=== PATIENT | female | born 1965 | race Caucasian/White ===

== ENCOUNTER 2016-05-21 10:33 | Day surgery (SDC) | payer BC ==
[2016-05-20 10:25] LABS: BLOOD UREA NITROGEN 16 mg/dL (7-18)
[~2016-05-21] VITALS: Ht 157.5 cm; Wt 90.0 kg
[~2016-05-21 10:33] MED LIST: ATOR10TA9 PO; CHOL500015 PO; LEVO100T5 PO; MULT-516 PO; VITA1TAB3 PO
[2016-05-21] MEDS ORDERED: LACTATED RINGERS 1,000 ML IV SCH (11:03)
[2016-05-21 11:04] VITALS: BP 134/86
[2016-05-21] MEDS ORDERED: LIDOCAINE 1%, 2ML SQ PRN (11:30)
[2016-05-21] MEDS ORDERED: BUPIVACAINE/PF-EPI 0.25% 1:200K ONE (12:13)
[2016-05-21] MEDS ORDERED: FENTANYL PF 250 MCG/5ML ONE (12:27)
[2016-05-21] MEDS ORDERED: MIDAZOLAM 1 MG/ML, 2ML ONE (12:27)
[2016-05-21] MEDS ORDERED: ONDANSETRON 2MG/ML, 2ML ONE (12:57)
[2016-05-21] MEDS ORDERED: DEXAMETHASONE 4 MG/ML, 1ML ONE (12:57)
[2016-05-21] MEDS ORDERED: PROPOFOL 10 MG/ML, 20ML ONE (12:57)
[2016-05-21] MEDS ORDERED: CEFAZOLIN 1,000 MG ONE (12:57)
[2016-05-21] MEDS ORDERED: BUPIVACAINE/PF-EPI 0.25% 1:200K INFIL ONE (13:19)
[2016-05-21] MEDS ORDERED: OXYcodone 5 MG/5 ML ORAL.SOL UDC ONE (13:58)
[2016-05-21] MEDS ORDERED: MEPERIDINE/PF 25MG/0.5ML IVPush PRN (14:00)
[2016-05-21] MEDS ORDERED: FENTANYL PF 100 MCG/2ML IV PRN (14:00)
[2016-05-21] MEDS ORDERED: PROMETHAZINE 25 MG/ML, 1ML IV PRN (14:00)
[2016-05-21] MEDS ORDERED: OXYcodone 5 MG/5 ML ORAL.SOL UDC PO PRN (14:00)
[2016-05-21] MEDS ORDERED: LABETALOL 5MG/ML, 20ML IV PRN (14:00)
[2016-05-21] MEDS ORDERED: ACETAMINOPHEN 325 MG TABLET PO PRN (14:00)
[2016-05-21] MEDS ORDERED: hydrALAzine 20 MG/ML, 1ML IV PRN (14:00)
[2016-05-21] MEDS ORDERED: ONDANSETRON 2MG/ML, 2ML IVPush PRN (14:00)
[2016-05-21] MEDS ORDERED: ALBUTEROL/IPRATROPIUM 2.5MG/0.5MG, 3 ML NPPB PRN (14:00)
[2016-05-21] MEDS ORDERED: KETOROLAC 30 MG/1 ML IV PRN (14:00)
[2016-05-21] MEDS ORDERED: MIDAZOLAM 1 MG/ML, 2ML IV PRN (14:00)
[2016-05-21] MEDS ORDERED: HYDROmorphone 1 MG/ML, 1ML IV PRN (14:00)
[2016-05-21] MEDS ORDERED: ACETAMINOPHEN 325 MG TABLET ONE (14:01)
== END 2016-05-21 15:10 | disposition home or self-care (01) ==
LOC: OUT 10:33
PROVIDERS: ATTEND Surgery
DX: L02.415 Cutaneous abscess of right lower limb (principal); E03.9 Hypothyroidism, unspecified; E78.5 Hyperlipidemia, unspecified; Z98.84 Bariatric surgery status; Z98.51 Tubal ligation status; Z90.49 Acquired absence of other specified parts of digestive tract; Z87.891 Personal history of nicotine dependence; Z72.89 Other problems related to lifestyle; Z82.3 Family history of stroke
CPT/HCPCS: 27327; 36415; 80048; 87070; 87075; 87205; 88304; J0690; J1100; J2250; J2405; J2704; J3010; J7120

== ENCOUNTER → 2016-06-17 | Outpatient (CLI) | payer BC | END | disposition home or self-care (01) | LOC: WOUND 13:17 | PROVIDERS: ATTEND Internal Medicine | DX: T81.31XD Disruption of external operation (surgical) wound, not elsewhere classified, subsequent encounter (principal); L76.34 Postprocedural seroma of skin and subcutaneous tissue following other procedure; E78.5 Hyperlipidemia, unspecified; E03.9 Hypothyroidism, unspecified; Z87.891 Personal history of nicotine dependence; Z72.89 Other problems related to lifestyle; Y83.8 Other surgical procedures as the cause of abnormal reaction of the patient, or of later complication, without mention of misadventure at the time of the procedure | CPT/HCPCS: 11042; 99215 ==

== ENCOUNTER → 2016-07-03 | Outpatient (CLI) | payer BC | END | disposition home or self-care (01) | LOC: WOUND 10:05 | PROVIDERS: ATTEND Physician Assistant | DX: T81.31XD Disruption of external operation (surgical) wound, not elsewhere classified, subsequent encounter (principal); E03.9 Hypothyroidism, unspecified; E78.5 Hyperlipidemia, unspecified; L76.34 Postprocedural seroma of skin and subcutaneous tissue following other procedure; Z87.891 Personal history of nicotine dependence; Z72.89 Other problems related to lifestyle; Y83.8 Other surgical procedures as the cause of abnormal reaction of the patient, or of later complication, without mention of misadventure at the time of the procedure | CPT/HCPCS: 99214 ==